=== PATIENT | female | born 1960 | race Caucasian/White ===

== ENCOUNTER 2021-10-17 08:45 | Inpatient (IN) ==
--- NOTE | 2021-10-07 10:46 | Anesthesiology Consultation ---
Date of Service October 07, 2021 Assessment & Plan (1) Encounter for pre-operative examination: Chart Review Chart Review: Acceptable Risk for Surgery (pending preop Covid testing results ) and Patient NOT seen in Pre Admission Testing - Check BSG AM DOS Per nursing assessment 10/07/21, pt resides and works in [facility]. Works as pharmacy general manager. Wears mask at work and in public. No known Covid positive exposures or Covid related symptoms. No known Covid infection in the past 90 days. Pt is fully vaccinated for Covid. Preop Covid testing scheduled 10/15/21= will await results History Surgery Operation Date: 10/17/21 09:05 Proposed Procedures p Laparoscopic Colectomy Right - Stephen Santoro, DO Height/Weight Height: 5 ft 5 in Weight: 90.718 kg Allergies Allergy/AdvReac Type Severity Reaction Status Date / Time codeine Allergy Severe Anaphylaxis Verified 10/07/21 09:45 Penicillins Allergy Severe Anaphylaxis Verified 10/07/21 09:45 levofloxacin [From Levaquin] AdvReac Severe n/v Verified 10/07/21 09:45 citalopram [From Celexa] AdvReac Unknown n/v Verified 10/07/21 09:45 clarithromycin [From Biaxin] AdvReac Unknown Nausea Verified 10/07/21 09:45 escitalopram [From Lexapro] AdvReac Unknown n/v Verified 10/07/21 09:45 Medications Home Medications Medication Instructions Recorded Confirmed Last Taken cetirizine 10 mg tablet (Zyrtec) 10 mg PO DAILY PRN 08/20/21 10/07/21 09/08/21 ibuprofen 200 mg capsule 800 mg PO Q6H PRN 08/20/21 10/07/21 Unknown meloxicam 15 mg tablet 15 mg PO QPM 08/20/21 10/07/21 09/08/21 pantoprazole 40 mg tablet,delayed 40 mg PO BID tab 08/20/21 10/07/21 09/08/21 release (Protonix) ubrogepant 100 mg tablet (Ubrelvy) 100 mg PO UD PRN 10/07/21 10/07/21 Unknown Past Medical History Medical History (Updated 10/07/21 @ 10:54 by Tess Briones PA-C) Asthma UNDER CONTROL-NO INHALER-no problems Diabetes Diet controlled Diverticulitis History of GERD (gastroesophageal reflux disease) Hiatal hernia History of IBS Hx of gastric ulcer Intussusception of cecum Reason for upcoming SURGERY Migraine HX MVP (mitral valve prolapse) Mild "no problems" No murmur per 08/08/21 PCP note Rheumatic fever Hx (states she is to be premedicated with IV abx) Past Family History Family History Father COPD (chronic obstructive pulmonary disease) Sister Breast cancer Diabetes Mother Heart disease Cancer Stroke Past Surgical History Surgical History H/O inguinal hernia repair right x2 History of delivery History of colonoscopy 2021 History of esophagogastroduodenoscopy (EGD) History of laparoscopic cholecystectomy Nausea and vomiting after administration of anesthetic agent X 1 S/P excision of neuroma S/P EULA-BSO + appendectomy Status post tonsillectomy Social History Smoking Status: Former smoker tobacco type: cigarettes Do You Dip or Chew Tobacco: No Smoking End Date: QUIT 27 YRS AGO Hx Alcohol Use: Yes Alcohol type: wine alcohol intake frequency: a few times a month Hx Substance Use: No substance use type: does not use Lab Results Anesthesia Preop Results Results Anesthesia Widget: WBC 5.95 K/uL (4.8-10.8) 10/03/21 Hgb 16.3 g/dL (12.0-16.0) H 10/03/21 Hct 47.6 % (37-47) H 10/03/21 Plt 243 K/uL (130-400) 10/03/21 Na 139 mmol/L (136-145) 10/03/21 K 3.9 mmol/L (3.5-5.1) 10/03/21 Cl 109 mmol/L (98-107) H 10/03/21 CO2 23 mmol/L (21-32) 10/03/21 BUN 15 mg/dl (6-23) 10/03/21 Creat 0.67 mg/dl (0.6-1.2) 10/03/21 Glucose Level 84 mg/dl (70-99(Fasting)) 10/03/21 Testing Electrocardiogram Date: 10/03/21 Findings: + NSR @ (72bpm ) Normal EKG per cardio.
[~2021-10-17 08:45] MED LIST: CIPROFLOXACIN / D5W 400 MG/200 ML BAG IV SCH; LACTATED RINGER'S 1,000 ML IV SCH; metroNIDAZOLE 500 MG/100 ML BAG IV SCH
[2021-10-17] MEDS ORDERED: PHENYLEPHRINE 100MCG/ML 5ML SYR IV PRN (09:16)
[2021-10-17] MEDS ORDERED: ePHEDrine sulfate 50 MG/ML AMP IV PRN (09:16)
[2021-10-17] MEDS ORDERED: LABETALOL HCL IV 5 MG/ML 20ML IV PRN (09:16)
[2021-10-17] MEDS ORDERED: ATROPINE SULFATE 0.1 MG/ML 10ML SYR IV PRN (09:16)
[2021-10-17] MEDS ORDERED: ONDANSETRON INJ 2 MG/ML 2 ML VIAL IV PRN ×2 (09:16→14:29)
[2021-10-17] MEDS ORDERED: MEPERIDINE HCL 25 MG/ML CARP/VIAL IV PRN ×2 (09:16→14:29)
[2021-10-17] MEDS ORDERED: fentaNYL citrate 100 MCG/2 ML VIAL IV PRN (09:16)
[2021-10-17] MEDS ORDERED: MIDAZOLAM HCL 1 MG/ML 2ML VIAL ONE (10:02)
[2021-10-17] MEDS ORDERED: fentaNYL citrate 100 MCG/2 ML VIAL ONE (10:02)
--- NOTE | 2021-10-17 10:37 | History & Physical Bridge Note ---
Date of Service October 17, 2021 History & Physical Bridge Note I have examined the patient, reviewed the History & Physical and in the interval since the performance of the History & Physical I have noted the following changes of clinical significance: no changes noted
[2021-10-17] MEDS ORDERED: BUPIVACAINE 0.5 % 5 MG/1 ML MPF 30ML VIAL ONE (10:53)
[2021-10-17] MEDS ORDERED: EPINEPHrine INJ 1 MG/ML AMP ONE (10:53)
[2021-10-17] MEDS ORDERED: DEXAMETHASONE SOD INJ 4 MG/ML VIAL ONE (11:23)
[2021-10-17] MEDS ORDERED: ALBUMIN HUMAN 5% 12.5 GM/250 ML VIAL IV ONE (11:52)
[2021-10-17] MEDS ORDERED: HYDROmorphone INJ 2 MG/ML SYR/VIAL ONE (12:14)
[2021-10-17] MEDS ORDERED: LARYING-O-JET KIT (LTA) ONE (12:19)
[2021-10-17] MEDS ORDERED: PROPOFOL IV EMULSION 10 MG/ML 20 ML VIAL IV ONE (12:19)
[2021-10-17] MEDS ORDERED: ROCURONIUM BROMIDE 10 MG/ML 5 ML VIAL IV ONE (12:19)
[2021-10-17] MEDS ORDERED: NEOSTIGMINE METHYLSULFATE 1 MG/ML 10ML VIAL ONE (12:19)
[2021-10-17] MEDS ORDERED: LIDOCAINE 2% 2 ML VIAL/AMP(20MG/ML) INFIL ONE (12:19)
[2021-10-17] MEDS ORDERED: PHENYLEPHRINE 100MCG/ML 5ML SYR ONE (12:19)
[2021-10-17] MEDS ORDERED: GLYCOPYRROLATE 0.2 MG/ML VIAL ONE (12:19)
[2021-10-17] MEDS ORDERED: ePHEDrine sulfate 50 MG/ML SYR ONE (12:19)
[2021-10-17] MEDS ORDERED: ONDANSETRON INJ 2 MG/ML 2 ML VIAL ONE (12:19)
[2021-10-17] MEDS ORDERED: SUGAMMADEX SODIUM 200 MG/2 ML VIAL IV ONE (13:01)
--- NOTE | 2021-10-17 13:05 | Post Operative Brief Note ---
PG Immediate Post Op with CF Date of Surgery October 17, 2021 Pre & Post Diagnosis Operation Date: 10/17/21 11:05 Pre-Op Diagnosis: Intussusception of cecum Post-Op Diagnosis: Intussusception of cecum; adhesions I identified the patient and participated in the time-out.: Yes Procedure Operation Date: 10/17/21 11:05 Actual Procedures p Right Laparoscopic Colectomy(Not Applicable) ; extensive enterolysis- Stephen Santoro DO Surgeon Stephen Santoro DO Churn Operator dago Lyn Estimated Blood Loss 10 Findings Consistent with Post-Op Diagnosis Drains Centeno Catheter
--- NOTE | 2021-10-17 14:04 | Anesthesiology Progress Note ---
Date of Service October 17, 2021 Anesthesia Post Procedure Vital Signs Vital Signs: Temp Pulse Pulse Resp BP Pulse Ox 10/17/21 13:50 101 H 13 165/96 H 94 10/17/21 13:40 102 H 13 159/96 H 95 10/17/21 13:30 98 H 14 162/88 H 96 10/17/21 13:20 36.3 C L 90 17 161/94 H 96 10/17/21 09:38 36.9 C 82 20 145/79 H 95 Pain Intensity Right Abdomen: Pain Intensity: 2 Transfer of Care Handoff Completed per policy Notes Mental Status: alert / awake / arousable Patient Amnestic to Procedure: Yes Nausea / Vomiting: adequately controlled Pain: adequately controlled Airway Patency, RR, SpO2: stable & adequate BP & HR: stable & adequate Hydration State: stable & adequate Anesthetic Complications: no major complications apparent and Pt Satisfied with anesthetic care Notes: The patient is awake and comfortable. Her HR is now in the 70s and SBP in the 130s after labetalol 5 mg IV in PACU. All of her vital signs are stable.
[2021-10-17] MEDS: LACTATED RINGER'S 1,000 ML IV SCH ×2 (14:52→21:52)
[2021-10-17] MEDS: ACETAMINOPHEN 1,000 MG/100 ML VIAL IV SCH ×2 (15:11→23:33)
[2021-10-17] MEDS ORDERED: PROMETHAZINE HCL 12.5 MG in SODIUM CHLORIDE 0.9% 50 ML IV PRN (16:48)
[2021-10-17] MEDS: PANTOprazole 40 MG TAB PO SCH (21:52)
[2021-10-17] MEDS: CIPROFLOXACIN / D5W 400 MG/200 ML BAG IV SCH (23:56)
[2021-10-18] MEDS: LACTATED RINGER'S 1,000 ML IV SCH ×2 (05:37→16:49)
[2021-10-18 05:59] LABS: Eosinophils # (auto) 0.01 K/uL (0-0.5); Eosinophils % (auto) 0.1 %; Hematocrit (blood only) 42.9 % (37-47); Hemoglobin 14.3 g/dL (12.0-16.0); Immature Granulocytes # (auto) 0.02 K/uL (0.00-0.02); Immature Granulocytes % (auto) 0.2 %; Lymphocytes # (auto) 0.98 K/uL (1.2-3.4); Lymphocytes % (auto) 9.2 %; Mean Corpuscular Hemoglobin 31.9 pg (25-34); Mean Corpuscular Hgb Conc 33.3 g/dL (32-36); Mean Corpuscular Volume 95.8 fL (80-100); Mean Platelet Volume 9.9 fL (7.4-10.4); Monocytes # (auto) 1.01 K/uL (0.11-0.59); Monocytes % (auto) 9.5 %; Neutrophils # (auto) 8.66 K/uL (1.4-6.5); Platelet Count 202 K/uL (130-400); RDW Coefficient of Variation 12.6 % (11.5-14.5); RDW Standard Deviation 43.8 fL (36.4-46.3); Red Blood Count 4.48 M/uL (4.2-5.4); White Blood Count 10.68 K/uL (4.8-10.8)
[2021-10-18 06:25] LABS: BUN Creatinine Ratio 13.6 (10-20); Calcium 8.9 mg/dl (8.5-10.1); Creatinine Clr Calc Pharmacy 110.7 ml/min; Est GFR (African American) 114.7 ml/min; Est GFR (Non-African American) 98.9 ml/min
[2021-10-18] MEDS: ACETAMINOPHEN 1,000 MG/100 ML VIAL IV SCH ×3 (08:02→23:44)
[2021-10-18] MEDS: ENOXAPARIN INJ 40 MG/0.4 ML SYR SQ SCH (08:02)
[2021-10-18] MEDS: PANTOprazole 40 MG TAB PO SCH ×2 (08:03→20:12)
--- NOTE | 2021-10-18 08:24 | Surgery Progress Note ---
Date of Service October 18, 2021 Assessment & Plan (1) Intussusception of cecum: Plan: POD 1 lap right colectomy start clears, decrease IVF d/c harris Lovenox labs stable as above. +bm's already. minimal pain. urinating fine continue current care. still clears only Admission and Anticipated Discharge Date Admission Date: October 17, 2021 Subjective nausea resolved after phenergan last night, no flatus, pain / Physical Exam Constitutional: WD/WN, vitals as above Gastrointestinal (Abdomen): Inspection/Auscultation: + abdominal surgical incision (dressings dry); abdomen not distended Percussion/Palpation: abdomen soft Results & Data ([facility]) Vital Signs (Past 12 Hours) Vital Signs Temp Pulse Resp BP Pulse Ox 10/18/21 07:34 36.7 C 79 16 126/72 96 10/18/21 03:14 36.8 C 88 18 126/76 94 10/17/21 21:56 36.4 C L 95 H 17 108/69 94 PG Care Time/CCT Total # of Minutes Spent Total Time Spent with Patient: Total time spent is greater than 50% in coordination of care (as documented) at patient's floor/unit and/or counseling patient: Coding Level of Care Code None Diagnoses Intussusception of cecum K56.1
[2021-10-18] MEDS: CIPROFLOXACIN / D5W 400 MG/200 ML BAG IV SCH (10:57)
--- NOTE | 2021-10-18 16:57 | Operative Report ---
PG Post Operative Report Pre & Post Diagnosis Operation Date: 10/17/21 11:05 Pre-Op Diagnosis: Intussusception of cecum Post-Op Diagnosis: Intussusception of cecum I identified the patient and participated in the time-out.: Yes Procedure Operation Date: 10/17/21 11:05 Actual Procedures p Right Laparoscopic Colectomy(Not Applicable); extensive enterolysis - Stephen Santoro DO Surgeon Stephen Santoro DO Substation Electrician Supervisor dago Lyn Estimated Blood Loss 20 Findings Consistent with Post-Op Diagnosis Specimens terminal ileum, cecum, right colon Description of Procedure After informed consent was obtained the patient was taken to the operating room and placed in supine position. After successful intubation a Centeno catheter was placed sterilely and the abdomen was sterilely prepped and draped in usual fashion. I began with a supraumbilical incision with an 11 blade scalpel. This was carried down through the soft tissue using cautery. The anterior rectus fascia was opened using cautery and two #0 Vicryl stay sutures were placed. Peritoneum was elevated with hemostats and incised under direct vision using a Metzenbaum scissor. A finger sweep was performed. A 12 mm Joyner trocar was placed and the abdomen was insufflated to 18 mmHg. Laparoscope was inserted and the abdomen was examined in 360 degrees. There were adhesions throughout the abdomen in the lower abdomen as well as right side and upper abdomen. I was able to place a left lower quadrant 12 mm trocar. I began by taking down adhesions which involved omentum small and large bowel. Eventually I was able to place a suprapubic 5 mm port to assist in taking down more adhesions. Eventually also placed the right mid abdominal 5 mm trocar. Once I had the far majority of the abdominal adhesions lysed I was then able to examine the right colon. The cecum and right colon was also adhesed to the anterior abdominal wall and twisted in an abnormal fashion. I suspect this contributed to her intussusception seen on imaging. I was able to return the colon to its anatomic position after lysing the adhesions. There was an abnormal appearance at the terminal ileum cecum junction as well. I therefore freed up the right colon along the white line of Toldt using small amounts of harmonic scalpel as well as blunt dissection. I continued this up and around the hepatic flexure to the mid transverse colon. Next I stapled off the terminal ileum several inches proximal to the ileocecal valve using a SONDRA brown cartridge stapler. I then used the harmonic scalpel to take down the mesentery of the small bowel as well as cecum and right colon. Again I carried this up and around the hepatic flexure. I was able to identify the duodenum to keep it out of harm's way. Once I had the right colon and transverse colon freed up we then remove the right mid abdominal trocar and extended this incision medially. I took this down and through the fascia using cautery. We were then able to deliver the terminal ileum cecum and right colon out through this wound. We did protect the wound with sterile towels. I then used a SONDRA linear stapler to transect the colon proximal to the middle colic vessels. The specimen was sent to pathology. Next I delivered the terminal ileum staple line out through the same incision. We lined this up and performed a [id number] ileocolonic anastomosis using SONDRA garvey cartridge stapler. We then closed the common enterotomy using a TA 90 stapler. 3-0 silk was used to place a crotch stitch as well as the imbricate the staple lines. The anastomosis was patent and nice and pink and intact. It was then placed back into the abdominal cavity. The fascia was closed using 0 PDS in running fashion. At this point we changed our gloves. We reinsufflated the abdomen. I examined the anastomosis and it looked fine. The mesentery was not twisted. There was adequate hemostasis. We removed all the trochars and desufflated the abdomen. The fascia of the camera port was closed using 0 Vicryl in a [id number] fashion. All the wounds were thoroughly irrigated and closed using skin heather. Silver dressings as well as gauze and tape were used. The patient was awakened extubated transferred recovery in stable condition. My physician tourist information assistant was present for the entire case. She was instrumental in assisting throughout the case running the camera assisting with the anastomosis wound closure and dressing placement. I attest to the content of the Intraoperative Record and any orders documented therein. Any exceptions are noted below.
[2021-10-19] MEDS: LACTATED RINGER'S 1,000 ML IV SCH (02:34)
--- NOTE | 2021-10-19 05:07 | Surgery Progress Note ---
Date of Service October 19, 2021 Assessment & Plan (1) Intussusception of cecum: Plan: Postoperative day #2 right colectomy Surgical pathology is pending Continue current diet with consideration of advancement as bowel function improves Continue IV fluid until oral intake deemed to be adequate Continue antiemetics Continue analgesics Encourage use of incentive spirometry Increase activity Lovenox is in place for DVT prevention as above. doing well clay clears. will advance slowly increase activity. pain control adequate Admission and Anticipated Discharge Date Admission Date: October 17, 2021 Subjective Patient is resting comfortably in bed. She notes that since her surgery she has tolerated liquids. She denies any nausea vomiting and has passed flatus but did not report any bowel movements yet. Patient says she is voiding without difficulty and she is ambulated in her room without difficulty. Physical Exam Gastrointestinal (Abdomen): Abdomen is soft with minimal distention. Her incision appears clean, dry, intact. Bowel sounds are present but hypoactive. Patient has appropriate pain near surgical incision. Results & Data ([facility]) Vital Signs (Past 12 Hours) Vital Signs Temp Pulse Resp BP Pulse Ox 10/18/21 23:31 37.0 C 85 17 152/84 H 93 PG Care Time/CCT Total # of Minutes Spent Total Time Spent with Patient: Total time spent is greater than 50% in coordination of care (as documented) at patient's floor/unit and/or counseling patient: Coding Level of Care Code None Diagnoses Intussusception of cecum K56.1
[2021-10-19 05:48] LABS: Basophils # (auto) 0.01 K/uL (0-0.2); Basophils % (auto) 0.1 %; Eosinophils # (auto) 0.04 K/uL (0-0.5); Eosinophils % (auto) 0.5 %; Hematocrit (blood only) 41.6 % (37-47); Hemoglobin 13.6 g/dL (12.0-16.0); Immature Granulocytes # (auto) 0.01 K/uL (0.00-0.02); Immature Granulocytes % (auto) 0.1 %; Lymphocytes # (auto) 2.26 K/uL (1.2-3.4); Lymphocytes % (auto) 30.8 %; Mean Corpuscular Hemoglobin 32.1 pg (25-34); Mean Corpuscular Hgb Conc 32.7 g/dL (32-36); Mean Corpuscular Volume 98.1 fL (80-100); Mean Platelet Volume 10.4 fL (7.4-10.4); Monocytes # (auto) 0.77 K/uL (0.11-0.59); Monocytes % (auto) 10.5 %; Neutrophils # (auto) 4.25 K/uL (1.4-6.5); Platelet Count 179 K/uL (130-400); RDW Coefficient of Variation 12.9 % (11.5-14.5); RDW Standard Deviation 46.1 fL (36.4-46.3); Red Blood Count 4.24 M/uL (4.2-5.4); White Blood Count 7.34 K/uL (4.8-10.8)
[2021-10-19 06:12] LABS: Calcium 8.4 mg/dl (8.5-10.1); Creatinine Clr Calc Pharmacy 94.7 ml/min; Est GFR (African American) 108.9 ml/min; Potassium 3.6 mmol/L (3.5-5.1)
[2021-10-19] MEDS: PANTOprazole 40 MG TAB PO SCH ×2 (07:59→20:10)
[2021-10-19] MEDS: ENOXAPARIN INJ 40 MG/0.4 ML SYR SQ SCH (07:59)
[2021-10-19] MEDS: ACETAMINOPHEN 1,000 MG/100 ML VIAL IV SCH (08:03)
[2021-10-20 06:01] LABS: Basophils # (auto) 0.02 K/uL (0-0.2); Basophils % (auto) 0.2 %; Eosinophils # (auto) 0.12 K/uL (0-0.5); Eosinophils % (auto) 1.5 %; Hematocrit (blood only) 44.4 % (37-47); Hemoglobin 14.7 g/dL (12.0-16.0); Immature Granulocytes # (auto) 0.01 K/uL (0.00-0.02); Immature Granulocytes % (auto) 0.1 %; Lymphocytes # (auto) 2.38 K/uL (1.2-3.4); Lymphocytes % (auto) 29.5 %; Mean Corpuscular Hemoglobin 32.5 pg (25-34); Mean Corpuscular Hgb Conc 33.1 g/dL (32-36); Mean Platelet Volume 10.1 fL (7.4-10.4); Monocytes # (auto) 0.95 K/uL (0.11-0.59); Monocytes % (auto) 11.8 %; Neutrophils # (auto) 4.59 K/uL (1.4-6.5); Neutrophils % (auto) 56.9 %; Platelet Count 215 K/uL (130-400); RDW Coefficient of Variation 12.7 % (11.5-14.5); RDW Standard Deviation 45.8 fL (36.4-46.3); Red Blood Count 4.53 M/uL (4.2-5.4); White Blood Count 8.07 K/uL (4.8-10.8)
[2021-10-20 06:18] LABS: BUN Creatinine Ratio 11.3 (10-20); Calcium 8.7 mg/dl (8.5-10.1); Est GFR (African American) 106.5 ml/min; Est GFR (Non-African American) 91.9 ml/min; Potassium 3.6 mmol/L (3.5-5.1)
--- NOTE | 2021-10-20 06:21 | Surgery Progress Note ---
Date of Service October 20, 2021 Assessment & Plan (1) Intussusception of cecum: Plan: Postoperative day #3 right colectomy Surgical pathology remains pending Consider further diet advancement as patient has had return of bowel function Continue antiemetics Continue analgesics Encourage use of incentive spirometry Continue activity as tolerated Lovenox is in place for DVT prevention doing great. minimal pain. clay diet. ok for d/c. instructions given. Admission and Anticipated Discharge Date Admission Date: October 17, 2021 Subjective Patient is resting comfortably in bed. Other than some surgical incisional pain she says she feels well. She noted that she tolerated advancement of diet to full liquids without exacerbation of abdominal pain. She denies any nausea vomiting. She reports she is passing flatus and had a bowel movement last night. She says she has increased her ambulation yesterday. She notes she is voiding without difficulty. Physical Exam Gastrointestinal (Abdomen): Abdomen is soft and nondistended. Patient has appropriate pain at surgical incision. Incision appears clean, dry, intact. Bowel sounds are hypoactive. Results & Data ([facility]) Vital Signs (Past 12 Hours) Vital Signs Temp Pulse Resp BP Pulse Ox 10/19/21 21:58 37.5 C 92 H 18 134/82 91 PG Care Time/CCT Total # of Minutes Spent Total Time Spent with Patient: Total time spent is greater than 50% in coordination of care (as documented) at patient's floor/unit and/or counseling patient: Coding Level of Care Code None Diagnoses Intussusception of cecum K56.1
[2021-10-20] MEDS: ENOXAPARIN INJ 40 MG/0.4 ML SYR SQ SCH (08:18)
[2021-10-20] MEDS: PANTOprazole 40 MG TAB PO SCH (08:18)
--- NOTE | 2021-10-22 14:34 | Discharge Summary ---
Date of Service October 20, 2021 Principal Diagnosis intussusception of cecum laparoscopic assisted right colectomy Discharge Exam awake/alert Gastrointestinal (Abdomen) Inspection/Auscultation: + abdominal surgical incision (c/d/i); abdomen not distended Percussion/Palpation: + abdomen tender (expected jeferson-incisional discomfort to palpation ) and abdomen soft Discharge Data Allergies Allergy/AdvReac Type Severity Reaction Status Date / Time codeine Allergy Severe Anaphylaxis Verified 10/07/21 09:45 Penicillins Allergy Severe Anaphylaxis Verified 10/07/21 09:45 levofloxacin [From Levaquin] AdvReac Severe n/v Verified 10/07/21 09:45 citalopram [From Celexa] AdvReac Intermediate n/v Verified 10/17/21 09:32 clarithromycin [From Biaxin] AdvReac Intermediate Nausea Verified 10/17/21 09:32 escitalopram [From Lexapro] AdvReac Intermediate n/v Verified 10/17/21 09:32 Procedures Performed Operation Date: 10/17/21 11:05 Actual Procedures p Right Laparoscopic Colectomy(Not Applicable) - Stephen Santoro, Hospital Course (1) Intussusception of cecum: This is a 61yF who presented to the [facility] on [facility]21 for a planned right colectomy with Dr. Santoro for history of intussusception. The patient tolerated the procedure well, see op note for full details. The patient recovered in the PACU and was transferred to the med/surg nursing unit in stable condition with prn pain meds, 24hour post op abx, harris catheter, and NPO with sips/chips. On POD#1 (2/18) the patient's diet was advanced to clear liquids. DVT prophylaxis in place with daily lovenox. Pain controlled. Harris catheter removed and patient able to void spontaneously. POD#2 (2) diet advanced to full liquids. Activity encouraged. Pain and nausea well managed. She began to have + bowel function. On POD#3 (10/20) patient advanced to a low fiber diet. Incisions c/d/i. Pain controlled. She continued to have bowel function. She was deemed stable for discharge to home with plans to follow up with Dr. Santoro in clinic within 2 weeks. Total Time Total Time Spent Total Time Spent (In Minutes): 15 Discharge Plan Discharge Items Patient Disposition: Home - Self-Care Reason For Visit: Intussusception of cecum Discharge Diagnosis: right colon resection Activity: Per Instructions section Lifting: No more than 10 pounds Bathing Comment: may shower; no soaking in tubs/pools Exercise/Sports: Wait until after follow-up appointment Non-emergency contact: Surgeon Call non-emergency contact if: you have any medication questions, your symptoms worsen, your pain is not controlled, your pain is concerning for you, you have a fever, your temperature is above 101.5, your wound has increased redness, your wound has increased drainage and your wound pain has increased Follow-up/Referrals: Stephen Santoro, DO [Surgeon] - (Please call to schedule follow up in clinic within 1-2 weeks) Ankita Benjamin D.O. [Primary Care Provider] - Diet: Low Fiber Addtl Attending Provider Instructions: Pending Studies at Discharge: Yes Studies:: surgical pathology Stand-Alone Forms: My [facility] Medications and DC Order Prescriptions: Continued meloxicam 15 mg tablet 15 mg PO QPM RF: 0 pantoprazole [Protonix] 40 mg tablet,delayed release (DR/EC) 40 mg PO BID RF: 0 cetirizine [Zyrtec] 10 mg tablet 10 mg PO DAILY PRN (Reason: allergies) RF: 0 ibuprofen 200 mg capsule 800 mg PO Q6H PRN (Reason: Pain) RF: 0 Ubrelvy 100 mg Tablet 100 mg PO UD PRN (Reason: Migraine Headache) RF: 0 Discharge Orders: Discharge Order (Routine); Ordered 10/20/21 Ordered By: Stephen Sheets/Other Patient Handouts: Low-Fiber Diet Admission Data Admit Date/Time: 10/17/21 13:05 Attending Provider: Stephen Santoro Admit Provider: Stephen Santoro Primary Care Provider: Ankita Benjamin Other Interventions: Discharge Summary Assessment (RN) Last Done: 10/20/21 10:33 Coding Level of Care Code D/C DAY MANAGEMENT <30 MINS Diagnoses Intussusception of cecum K56.1
== END 2021-10-20 12:05 | disposition home or self-care (01) | DRG 331 ==
LOC: ASU 08:45 → 3E 13:05